=== PATIENT | male | born 1985 | race Caucasian/White ===

== ENCOUNTER 2021-07-10 06:41 | Emergency (ER) | payer SELFPAY ==
[~2021-07-10] VITALS: Ht 165.1 cm; Wt 133.8 kg
[2021-07-10 07:03] VITALS: BP 160/111
[2021-07-10] MEDS ORDERED: MORPHINE SULFATE 4 MG/ML SYR IVP ONE (07:20)
[2021-07-10] MEDS ORDERED: KETOROLAC 15 MG/ML VIAL IVP ONE (07:20)
[2021-07-10] MEDS ORDERED: NACL 0.9% 1,000 ML IV ONE (07:20)
[2021-07-10 07:41] LABS: APPEARANCE,URINE CLEAR (CLEAR); BILIRUBIN,URINE NEGATIVE (NEGATIVE); BLOOD, URINE TRACE-I (NEGATIVE); COLOR,URINE YELLOW (YELLOW); LEUKOCYTE ESTERASE ,URINE NEGATIVE (NEGATIVE); NITRITE, URINE NEGATIVE (NEGATIVE); UGLUCOSE NEGATIVE (NEGATIVE)
[2021-07-10 07:46] LABS: BASOPHILS # (AUTO) 0.1 K/uL (0.00-0.22); BASOPHILS % (AUTO) 0.5 % (0.0-2.0); EOSINOPHILS # (AUTO) 0.1 K/uL (0-0.4); EOSINOPHILS % (AUTO) 0.7 % (0.0-4.0); HEMATOCRIT 44.3 % (36-52); HEMOGLOBIN 15.1 g/dL (12.0-18.0); LYMPHOCYTES # (AUTO) 2.1 K/uL (2.0-11.5); LYMPHOCYTES % (AUTO) 20.7 % (20.5-51.1); MEAN CORPUSCULAR HEMOGLOBIN 31 pg (27-31); MEAN CORPUSCULAR HGB CONC 34 g/dL (33-37); MEAN CORPUSCULAR VOLUME 89.7 fL (80-94); MONOCYTES # (AUTO) 0.5 K/uL (0.8-1.0); MONOCYTES % (AUTO) 5.4 % (1.7-9.3); NEUTROPHILS # (AUTO) 7.3 K/uL (1.8-7.7); NEUTROPHILS % (AUTO) 72.7 % (42.2-75.2); PLATELET COUNT (AUTO) 327 K/uL (140-450); RED BLOOD CELL COUNT(AUTO) 4.94 MIL/uL (4.20-6.10); RED CELL DISTRIBUTION WIDTH 12.5 % (11.6-13.7); WHITE BLOOD COUNT (AUTO) 10.1 K/uL (4.8-10.8)
[2021-07-10 07:53] LABS: OTHER CASTS, URINE None Seen /LPF (None Seen); RBC,URINE 0-5 /HPF (0-5); WBC,URINE 0-5 /HPF (0-5)
--- NOTE | 2021-07-10 07:58 | NUR ---
36 y/o male, c/o left flank pain radiates to lower abd with n&v for 2 days. denies constipation and diarrhea, last bm: 07/09/21 normal. skin is pink/warm/dry. a&o x4 with even and steady gait. lungs clear bl, heart rate even and regular. pt denies dysuria, hematuria, urinary frequency or retention, or anyone sick in the household with the same symptoms. pt denies any fever, cp, sob, or cough at this time. pt states pain is 8/10 at this time. patient positioned for comfort. hob elevated. bed down. ermd made aware of pt. pmh: htn nka med: tylenol
[2021-07-10 08:03] LABS: ANION GAP 10.1 (8-16); CARBON DIOXIDE 28.3 mmol/L (21-32); CREATININE 1.2 mg/dL (0.6-1.3); POTASSIUM 4.4 mmol/L (3.5-5.1); TOTAL BILIRUBIN 0.5 mg/dL (0.0-1.0)
--- NOTE | 2021-07-10 08:05 | NUR ---
call light left at bedside within reach, pt resting at this time.
[2021-07-10] MEDS ORDERED: ONDA-188 PO (08:53)
[2021-07-10] MEDS ORDERED: IBUP-2213 PO (08:53)
[2021-07-10] MEDS ORDERED: TAMS0.4C96 PO (08:53)
[2021-07-10] MEDS ORDERED: ACET-8386 PO ×2 (08:53→08:54)
[2021-07-10 09:46] VITALS: BP 160/111
--- NOTE | 2021-07-10 09:46 | NUR ---
Patient discharged with v/s stable. Written and verbal after care instructions given and explained. Patient alert, oriented and verbalized understanding of instructions. Ambulatory with steady gait to car, pt states he feels okay to drive, non drowsy. All questions addressed prior to discharge. ID band removed. Patient advised to follow up with PMD. Rx of hydrocodone, ibuprofen, zofran, tamsulosin (sent) given. Patient educated on indication of medication including possible reaction and side effects. Opportunity to ask questions provided and answered. script for norco given, work note and copy of labs/imaging given
== END 2021-07-10 09:46 | disposition home or self-care (01) ==
LOC: MED 06:41
DX: N20.2 Calculus of kidney with calculus of ureter (principal); Z79.891 Long term (current) use of opiate analgesic; Z79.899 Other long term (current) drug therapy; Z79.1 Long term (current) use of non-steroidal anti-inflammatories (NSAID)
CPT/HCPCS: 36415; 74176; 80053; 81001; 85025; 96361; 96374; 96375; 99284; J1885; J2270; J7030